=== PATIENT | female | born 1960 | race Caucasian/White ===

== ENCOUNTER 2021-09-12 16:16 | Emergency (ER) | payer OTHER ==
[~2021-09-12] VITALS: Ht 165.1 cm; Wt 78.9 kg
[~2021-09-12 16:16] MED LIST: AMITRIPTYLINE H25 M2 PO; DYRENIUM100 MG PO; EXCEDRIN SINUS1 EAC2 PO; IBUPROFEN 600600 M1 PO; IBUPROFEN 800800 M1 PO; NORCO 5-325 TA1 EACH PO; PERCOCET 5-3251 EACH PO; SIMVASTATIN10 MG PO; TIROSINT100 MCG PO; VALIUM5 MG PO; WATER PILL
[2021-09-12] MEDS ORDERED: FLEXERIL PO (18:13)
[2021-09-12] MEDS ORDERED: MEDROLDOSEPACK PO (18:13)
[2021-09-12 18:19] VITALS: BP 162/67
== END 2021-09-12 18:19 | disposition home or self-care (01) ==
LOC: ER 16:16
DX: M54.32 Sciatica, left side (principal); Z79.899 Other long term (current) drug therapy